=== PATIENT | female | born 1995 | race Asian ===

== ENCOUNTER 2021-07-09 21:40 | Emergency (ER) | payer MEDICAID ==
[~2021-07-09] VITALS: Ht 165.1 cm; Wt 43.3 kg
--- NOTE | 2021-07-09 21:48 | NUR ---
Dr. Barfield at bedside for MSE.
[2021-07-09 22:07] LABS: MEAN CORPUSCULAR HEMOGLOBIN 28.4 uug (24.7-32.8); MEAN CORPUSCULAR VOLUME 81.2 fL (75.5-95.3); PLATELET COUNT (AUTO) 305 K/uL (179-408)
[2021-07-09 22:14] LABS: BILIRUBIN,DIRECT 0.1 mg/dL (0.0-0.2); BILIRUBIN,TOTAL 0.3 mg/dL (0.2-1.0); CREATININE 0.7 mg/dL (0.6-1.3); TOTAL PROTEIN, SERUM 7.8 g/dL (6.4-8.2)
[2021-07-09] MEDS ORDERED: MORPHINE SULFATE 4 MG/1 ML DISP.SYRIN ONE (22:14)
[2021-07-09] MEDS ORDERED: ONDANSETRON 4 MG/2 ML VIAL ONE (22:15)
[2021-07-09] MEDS ORDERED: MORPHINE SULFATE 4 MG/1 ML DISP.SYRIN IV ONE (22:15)
[2021-07-09] MEDS ORDERED: ONDANSETRON 4 MG/2 ML VIAL IV ONE (22:15)
[2021-07-09 22:26] LABS: *URINE HCG, QUAL POSITIVE (NEGATIVE)
[2021-07-09 22:28] LABS: *BILIRUBIN,URIN NEGATIVE (NEGATIVE); *CLARITY,URINE CLEAR (CLEAR); *COLOR,URINE YELLOW (YELLOW); *KETONES,URINE NEGATIVE (NEGATIVE); *UROBILINOGEN,URINE 0.2 E.U./dl (NORMAL); LEUKOCYTE ESTERASE ,URINE NEGATIVE (NEGATIVE); NITRITE, URINE NEGATIVE (NEGATIVE); PH,URINE 5.5 (5.0-8.0); UGLUCOSE NEGATIVE (NEGATIVE)
[2021-07-09 22:29] LABS: *BLOOD, URINE TRACE (NEGATIVE)
[2021-07-09] MEDS ORDERED: IV NORMAL SALINE 0 ML IV ONE (22:36)
[2021-07-09] MEDS ORDERED: IOHEXOL 300MG/ML 100 ML INFUS..BTL ONE (22:36)
[2021-07-09] MEDS ORDERED: SWABABLE VALVE TRANSFER SET EA MC ONE (22:36)
[2021-07-09] MEDS ORDERED: IV NS 1000 ML 1,000 ML IV ONE (22:45)
--- NOTE | 2021-07-09 23:00 | NUR ---
Ultrasound at bedside.
--- NOTE | 2021-07-10 02:08 | NUR ---
Patient discharged to home in stable condition. Written and verbal after care instructions given. Patient verbalizes understanding of instructions. Stressed follow up or return to ER for worsening s/s. Patient out of ER with steady gait, no acute signs of distress, all belongings taken, VSS, IV site discontinued, provided with copies of lab and ultrasound results, as well as CD of images, instructed not to drive, to be driven home by via private vehicle.
[2021-07-10 02:09] VITALS: BP 101/58
[2021-07-10 09:59] LABS: BACTERIA,URINE NONE SEEN /HPF (NONE SEEN); RBC,URINE 0-3 /HPF (0-3); SQUAMOUS EPITHELIAL CELL,UR FEW /HPF (NONE SEEN); WBC,URINE 0-3 /HPF (0-3)
== END 2021-07-10 02:10 | disposition home or self-care (01) ==
LOC: ER 21:45
DX: O20.0 Threatened abortion (principal); Z3A.00 Weeks of gestation of pregnancy not specified
CPT/HCPCS: 36415; 76700; 76856; 80048; 80076; 81001; 83690; 84702; 84703; 85025; 96361; 96374; 96375 ×3; 99284; J2270; J2405; A4663; J7030; J7050; Q9967

== ENCOUNTER 2021-07-10 14:58 | Emergency (ER) | payer MEDICAID ==
[~2021-07-10] VITALS: Ht 165.1 cm; Wt 43.5 kg
== END 2021-07-10 15:37 | disposition left against medical advice (07) ==
LOC: ER 15:04
DX: Z53.21 Procedure and treatment not carried out due to patient leaving prior to being seen by health care provider (principal)

== ENCOUNTER 2021-07-11 01:02 | Inpatient (IN) | payer MEDICAID ==
[~2021-07-11] VITALS: Ht 165.1 cm; Wt 43.1 kg
[2021-07-11] MEDS ORDERED: ACETAMINOPHEN ES 500 MG TABLET ONE ×2 (01:43→01:51)
[2021-07-11] MEDS ORDERED: ACETAMINOPHEN ES 500 MG TABLET PO ONE (01:45)
[2021-07-11 01:46] LABS: ALANINE AMINOTRANSFERASE 17 U/L (14-59); ALKALINE PHOSPHATASE 49 U/L (50-136); ASPARTATE AMINOTRANSFERASE 17 U/L (15-37); BILIRUBIN,DIRECT < 0.1 mg/dL (0.0-0.2); BILIRUBIN,TOTAL 0.3 mg/dL (0.2-1.0); CARBON DIOXIDE 29 mmol/L (21-32); CHLORIDE 104 mmol/L (98-107); CREATININE 0.6 mg/dL (0.6-1.3); GLUCOSE 92 mg/dL (74-106); POTASSIUM 3.6 mmol/L (3.5-5.1); TOTAL PROTEIN, SERUM 7.6 g/dL (6.4-8.2); UREA NITROGEN, BLOOD 5 mg/dL (7-18)
[2021-07-11 01:49] LABS: HEMATOCRIT 34.7 % (31.2-41.9); MEAN CORPUSCULAR VOLUME 82.4 fL (75.5-95.3); PLATELET COUNT (AUTO) 304 K/uL (179-408)
--- NOTE | 2021-07-11 02:18 | NUR ---
Hien osman into do procedure.
--- NOTE | 2021-07-11 03:21 | NUR ---
Patient refused to have pelvic exam.
--- NOTE | 2021-07-11 03:29 | NUR ---
Dr Barfield spoke with Dr Elias DEL CID consult.
--- NOTE | 2021-07-11 03:31 | NUR ---
Paged [employer] panel sales relationship manager, waiting for Andreia Dalal NP.
--- NOTE | 2021-07-11 03:40 | NUR ---
Dr Barfield spoke with Andreia Dalal NP manager regional sales for [facility] group who accepts patient.
[2021-07-11] MEDS ORDERED: REMEDY ESSENTIAL ZINC PASTE 113 GM TP PRN (03:45)
[2021-07-11] MEDS ORDERED: ONDANSETRON 4 MG/2 ML VIAL IV PRN (03:45)
[2021-07-11] MEDS ORDERED: MORPHINE SULFATE 2 MG/1 ML DISP.SYRIN IV PRN (03:45)
[2021-07-11] MEDS ORDERED: IV NS 1000 ML 1,000 ML IV ONE (04:30)
[2021-07-11] MEDS ORDERED: PANTOPRAZOLE SODIUM 40 MG VIAL IV SCH (09:00)
--- NOTE | 2021-07-11 09:06 | NUR ---
DR. HAMILTON AT BEDSIDE.
[2021-07-11] MEDS ORDERED: ROCURONIUM BROMIDE 50 MG/5 ML VIAL ONE (09:47)
[2021-07-11] MEDS ORDERED: FENTANYL CITRATE 100 MCG/2 ML AMPUL ONE (09:47)
[2021-07-11] MEDS ORDERED: MIDAZOLAM HCL 2 MG/2 ML VIAL ONE (09:47)
[2021-07-11] MEDS ORDERED: BUPIVACAINE/EPI PF 0.25% 30 ML VIAL ONE (09:49)
--- NOTE | 2021-07-11 09:53 | NUR ---
OR CREW HERE TO TAKE THE PT TO SURGERY.
--- NOTE | 2021-07-11 10:00 | NUR ---
CALLED PROCESSING TECH REGARDING THE FLOOR BED FOR PT AFTER SURGERY. PROCESSING TECH SAID THAT SHE IS WORKING ON IT.
[2021-07-11] MEDS ORDERED: MEPERIDINE 25 MG/1 ML DISP.SYRIN ONE (12:11)
[2021-07-11] MEDS ORDERED: ETOMIDATE 20 MG/10 ML VIAL IV ONE (12:29)
[2021-07-11] MEDS ORDERED: NEOSTIGMINE METHYLSULFATE 10 MG/10 ML VIAL IV ONE (12:29)
[2021-07-11] MEDS ORDERED: GLYCOPYRROLATE 0.2 MG/ML VIAL IJ ONE (12:29)
[2021-07-11] MEDS ORDERED: DEXAMETHASONE SOD PHOSPHATE 4 MG INJ IV ONE (12:29)
[2021-07-11] MEDS ORDERED: SUCCINYLCHOLINE CHLORIDE 200 MG/10 ML VIAL IV ONE (12:29)
[2021-07-11] MEDS ORDERED: KETOROLAC TROMETHAMINE 30 MG INJ IM ONE (12:29)
[2021-07-11] MEDS ORDERED: ESMOLOL HCL 100 MG/10 ML VIAL IV ONE (12:29)
[2021-07-11] MEDS ORDERED: ONDANSETRON 4 MG/2 ML VIAL IV ONE (12:29)
[2021-07-11] MEDS ORDERED: METOCLOPRAMIDE HCL 10 MG/2 ML VIAL IV ONE (12:29)
[2021-07-11] MEDS ORDERED: LIDOCAINE-MPF 2% 5 ML VIAL IJ ONE (12:29)
[2021-07-11] MEDS ORDERED: CEFAZOLIN 1 G VIAL IV ONE (12:29)
--- NOTE | 2021-07-11 12:37 | NUR ---
PT LEFT OR AND WENT DIRECTLY TO ROOM 310. REPORT GIVEN.
[2021-07-11 12:40] VITALS: BP 100/64
--- NOTE | 2021-07-11 12:40 | NUR ---
The patient arrived from OR, report given from ED and OR. Patient has 3 band aids intact to the lower abdomen, left and right abdominal area. dressing is dry, no bleeding identified. patient denies pain upon arrival to the unit. MD ordered diet as tolerated. Oriented patient to the room. kept call light within reach. will continue to monitor.
[2021-07-11] MEDS: IV D5 1/2 NS 1000 ML 1,000 ML IV PRN (14:52)
[2021-07-11 15:31] VITALS: BP 94/58
--- NOTE | 2021-07-11 18:49 | NUR ---
The patient remained stable during the shift. no distress identified. kept call light within reach. informed dr Barrientos patient complained of throat pain due to the procedure was done. seen by MD. all needs attended. Safety measures maintained. will endorse to the next shift for continuity of care.
[2021-07-11 20:00] VITALS: BP 91/52
[2021-07-12] MEDS: IV D5 1/2 NS 1000 ML 1,000 ML IV PRN ×2 (02:03→14:52)
[2021-07-12] MEDS: MORPHINE SULFATE 4 MG/1 ML DISP.SYRIN IV PRN ×2 (02:08→16:47)
[2021-07-12 04:00] VITALS: BP 96/41
--- NOTE | 2021-07-12 05:57 | NUR ---
PATIENT ASLEEP IN BED. SLEPT WELL THROUGHOUT THE NIGHT. DENIES PAIN OR DISCOMFORT. IVF INFUSING WELL. CALL LIGHT IN REACH. ALL NEEDS ATTENDED. WILL CONTINUE TO MONITOR.
[2021-07-12 06:13] LABS: HEMATOCRIT 26.9 % (31.2-41.9); MEAN CORPUSCULAR HEMOGLOBIN 28.9 uug (24.7-32.8); MEAN CORPUSCULAR VOLUME 81.7 fL (75.5-95.3); PLATELET COUNT (AUTO) 232 K/uL (179-408)
[2021-07-12 06:34] LABS: CREATININE 0.6 mg/dL (0.6-1.3); MAGNESIUM 1.8 mg/dL (1.8-2.4); PHOSPHOROUS 3.5 mg/dL (2.5-4.9); POTASSIUM 3.4 mmol/L (3.5-5.1)
[2021-07-12] MEDS: PANTOPRAZOLE SODIUM 40 MG VIAL IV SCH ×2 (07:54→09:00)
[2021-07-12] MEDS ORDERED: POTASSIUM CHLORIDE 20 MEQ TAB.PRT.SR PO ONE (08:30)
[2021-07-12] MEDS ORDERED: PANTOPRAZOLE SODIUM 40 MG VIAL IV SCH (09:30)
[2021-07-12 11:30] VITALS: BP 100/56
[2021-07-12 16:00] VITALS: BP 114/58
--- NOTE | 2021-07-12 18:25 | NUR ---
The patient remained stable during the shift. given x1 PRN pain medication. No bleeding identified. no distress noted. kept call light within reach. all needs attended. Safety measures maintained. will endorse to the next shift for continuity of care.
--- NOTE | 2021-07-12 19:00 | NUR ---
Received patient on bed, alert x4, no shortness of breath noted. With ongoing IVF D5 1/2 NS 1L at 100ml/hr infusing well at right AC. No complaint of pain.
[2021-07-12 20:00] VITALS: BP 112/64
[2021-07-13 04:00] VITALS: BP_SYST 117; BP_SYST 89; BP_DIAS 41; BP_DIAS 68
[2021-07-13] MEDS: IV D5 1/2 NS 1000 ML 1,000 ML IV PRN (05:10)
--- NOTE | 2021-07-13 05:59 | NUR ---
patient awake on bed, no complain of pain, no profuse bleeding noted, still with ongoing IVF D5 1/2 NS 1L at 100cc/hr.
[2021-07-13 06:02] LABS: HEMATOCRIT 28.4 % (31.2-41.9); MEAN CORPUSCULAR HEMOGLOBIN 28.6 uug (24.7-32.8); MEAN CORPUSCULAR VOLUME 82.4 fL (75.5-95.3); PLATELET COUNT (AUTO) 219 K/uL (179-408)
[2021-07-13 06:08] LABS: CREATININE 0.7 mg/dL (0.6-1.3); POTASSIUM 3.7 mmol/L (3.5-5.1)
[2021-07-13] MEDS ORDERED: PANTOPRAZOLE SODIUM 40 MG TABLET.DR PO SCH (07:00)
--- NOTE | 2021-07-13 07:00 | NUR ---
Endorsed to Am nurse in fair condition, no complaints presented.
[2021-07-13 12:16] VITALS: BP 103/56
--- NOTE | 2021-07-13 12:30 | NUR ---
discharged patient via private car with her without any distress or pain noted. belonging list signed. incision site intact, no bleeding noted. photo in chart. dc instructions given, signed and noted with understanding.
[2021-07-13] MEDS ORDERED: ENSURE ENLIVE (VAN) 240 ML LIQUID PO SCH (13:00)
== END 2021-07-13 12:30 | disposition home or self-care (01) | DRG 547 ==
LOC: ER 01:06 → TRANSITION 07:14 → MEDSURG3 12:31
PROVIDERS: ADMIT Internal Medicine; ATTEND Family Medicine
PROC: 0UT64ZZ Resection of Left Fallopian Tube, Percutaneous Endoscopic Approach (ICD-10-PCS; principal; 2021-07-11)
PROC: 10T24ZZ Resection of Products of Conception, Ectopic, Percutaneous Endoscopic Approach (ICD-10-PCS; principal; 2021-07-11)
PROC: 0DNW4ZZ Release Peritoneum, Percutaneous Endoscopic Approach (ICD-10-PCS; 2021-07-11)
PROC: 0W9J4ZZ Drainage of Pelvic Cavity, Percutaneous Endoscopic Approach (ICD-10-PCS; 2021-07-11)
DX: O00.102 Left tubal pregnancy without intrauterine pregnancy (principal); K66.1 Hemoperitoneum; D64.9 Anemia, unspecified; E87.6 Hypokalemia; Z20.822 Contact with and (suspected) exposure to COVID-19
CPT/HCPCS: 36415; 76856; 83735; 84100; 85025; 86850; 86900; 86901; A4663; A9150; C9113; G0378; J0330; J0690; J1100; J1885; J2175; J2250; J2270; J2405; J2765; J3010; J3490; J7030; J7070